=== PATIENT | male | born 1960 | race Caucasian/White ===

== ENCOUNTER 2019-12-25 08:13 | Inpatient (IN) | payer BC ==
[2019-12-25] VITALS (16 sets, daily range): BP systolic 98–125; BP diastolic 63–94
[~2019-12-25] VITALS: Ht 177.8 cm; Wt 116.9 kg
[2019-12-25] MEDS ORDERED: PLAVIX 75 MG TA75 MG PO (08:23)
[2019-12-25] MEDS ORDERED: ASPIR 8181 M1 PO (08:23)
[2019-12-25] MEDS ORDERED: NITROGLYCERIN0.4 MG SUBLING (08:23)
[2019-12-25] MEDS ORDERED: VENLAFAXINE HCL25 MG PO (08:24)
[2019-12-25] MEDS ORDERED: LORATIDINE 10 M10 M1 PO (08:24)
[2019-12-25] MEDS ORDERED: LIPITOR 20 MG T20 M1 PO (08:24)
[2019-12-25] MEDS ORDERED: TOPROL XL100 MG PO (08:25)
[2019-12-25] MEDS ORDERED: JANUVIA25 MG PO (08:25)
[2019-12-25 08:39] LABS: ABSOLUTE BASOPHILS 0.1 thou/uL (0.0-0.2); ABSOLUTE EOSINOPHILS 0.2 thou/uL (0.0-0.7); ABSOLUTE LYMPHOCYTES 2.6 thou/uL (0.8-5.3); ABSOLUTE MONOCYTES 0.8 thou/uL (0.0-1.2); ABSOLUTE NEUTROPHILS 5.5 thou/uL (1.6-8.1); BASOPHILS 1.3 %; EOSINOPHILS 2.1 %; HEMOGLOBIN 16.4 gm/dL (14.0-18.0); LYMPHOCYTES 28.4 %; MCH 31.2 pg (26.0-34.0); MCHC 34.9 g/dL (28.0-37.0); MCV 89.2 fL (80.0-100.0); MONOCYTES 8.3 %; MPV 7.2 fl. (7.2-11.1); NUCLEATED RBCS 0 /100WBC; PLATELET COUNT* 265 thou/uL (150-400); POLYS 59.9 %; RBC 5.28 mil/uL (4.50-6.00); RDW-CV 13.6 % (10.5-14.5); WBC 9.2 thou/uL (4.0-11.0)
[2019-12-25 08:48] LABS: CALCIUM 9.5 mg/dL (8.5-10.1); CREATININE 1.2 mg/dL (0.6-1.3); POTASSIUM 3.9 mmol/L (3.5-5.1)
[2019-12-25 08:59] LABS: ALBUMIN 3.7 g/dL (3.4-5.0); MAGNESIUM 1.8 mg/dL (1.8-2.4); TOTAL BILIRUBIN 0.4 mg/dL (<0.1-1.0); TOTAL PROTEIN 7.9 g/dL (6.4-8.2)
[2019-12-25] MEDS ORDERED: SUPER THERAVIT1 EACH PO (09:20)
[2019-12-25] MEDS ORDERED: PRINIVIL5 MG PO (09:20)
[2019-12-25] MEDS ORDERED: TRULICITY1.5 MG/0.5 (09:21)
[2019-12-25] MEDS ORDERED: FARXIGA5 MG PO (09:21)
--- NOTE | 2019-12-25 10:16 | EKG ---
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
[2019-12-25 11:46] LABS: CHOLESTEROL 163 mg/dL (<200); HDL CHOLESTEROL 39 mg/dL (>40); LDL CHOLESTEROL 96 mg/dL (<100); TC:HDL 4.2 Ratio (Not establshd); TRIGLYCERIDE 141 mg/dL (<150); VLDL 28 mg/dL (<40)
[2019-12-25 11:50] LABS: SERUM ASSESSMENT Clear
--- NOTE | 2019-12-25 17:24 | CARD ---
[address] [address] CARDIAC CATH REPORT Name: ANA MARIA MITCHELL Room: [address] IN ..#: [id number] Admission: 12/25/19 Attend Phys: Shonda Roy MD Discharge: Date of : 58 Report #: [id number] THIS REPORT FOR: //name// cc: Sid Velarde MD Honeycutt, Jamie Sue, MD ~ APPROVED REPORT Study performed: 12/25/2019 12:00:54 Patient Details Patient Status: In-Patient Room #: The patient is a 59 year-old male Event Personnel Mila Arredondo RN Wood Grinder Operator, Matt Sotelo RN Wood Grinder Operator, Jimenez Malone PRODUCTION WELDER Monitor, Isidro Linda Technician Biological Health, Michelle Miller RTManoj Scrub Procedures Performed Left Heart Cath w/or w/o Coronaries [id number] [facility] Indication Chest pain Risk Factors Hypercholesterolemia, Coronary Artery DiseaseHypertension Previous Procedures/Diagnoses Previous PCI Admission/Lab Medications/Medications given during procedure Heparin Unfract. Procedure Narrative The patient was brought electively to the Cardiac Catheterization Laboratory and was prepped and draped in a sterile manner. The right wrist was infiltrated with 1% Lidocaine subcutaneous anesthesia. A 6 mohawk sheath was inserted into the right radial artery. Coronary angiography was performed using coronary diagnostic catheters. The right coronary system was accessed and visualized with a JR4 catheter. The left coronary system was accessed and visualized with a JLr catheter. The left ventricle was accessed and visualized with a PIG catheter. Left ventricular/Aortic Valve gradient assessed via catheter pullback. Closure device was deployed with a 6 Fr TR Band. The patient tolerated the procedure well and there were no [facility] [address] [place] [address] CARDIAC CATH REPORT Name: ANA MARIA MITCHELL Room: [address] IN [facility]#: [id number] Admission: 12/25/19 Attend Phys: Shonda Roy MD Discharge: Date of : 58 Report #: [id number] complications associated with the procedure. There was no hematoma. Intraoperative Conscious Sedation Sedation start time: 1233 Case end Time: 1252 Fentanyl 25 mcg Dose: 103 2103 mGy Contrast Type and Amount: Visipaque 90 ml Coronary Angiography The patient's coronary anatomy is right dominant. Diagnostic Cath Left Main 0% stenosis LAD proximal stent had 0% restenosis. Mid stent had 30% restenosis Circumflex 0% stenosis Right Coronary mid stent had 30% restenosis. Distal rca had 30% stenosis Ramus 0% stenosis Left Ventriculography The left ventricular ejection fraction is estimated to be 60-65%. Left ventricular wall motion abnormalities are not present. There is no mitral insufficiency. Hemodynamics The aortic pressure is 93/66 mmHg with a mean of 77 mmHg. The left ventricular pressure is 109/10 mmHg with a mean of mmHg. The left ventricular end diastolic pressure is 12 mmHg. There was no gradient across the aortic valve upon pullback. Pullback from the left ventricle to the aorta revealed no gradient across the aortic valve. Conclusion 1. no significant restenosis in stents placed in the proximal and mid lad 2. no significant restenosis of a stent in the mid rca 3. LVEF 60-64% 4. suspect [place] [address] CARDIAC CATH REPORT Name: ANA MARIA MITCHELL Room: [address] IN [facility].#: [id number] Admission: 12/25/19 Attend Phys: Shonda Roy MD Discharge: Date of : 58 Report #: [id number] Recommendations Aggressive Medical Therapy <ELECTRONICALLY SIGNED> By: Isidro Linda MD, FACC 12/25/19 1723 1723 1723Dfrancisco Linda MD, FACC /INF
--- NOTE | 2019-12-25 20:08 | NUR ---
RECEIVED REPORT FROM JUAN DIEGO Bacon IN ER. PT ARRIVED TO TELE FLOOR AROUND 1040, ASSUMED CARE. PT ORIENTED TO ROOM BED AND CALL LIGHT. ADMISSION ASSESSMENT, VITALS, EDUCATION AND HISTORY COMPLETED CHARTED. IV INTACT. MEDS PER EMAR. PT WENT FOR CARDIAC CATH AND CAME BACK, NO INTERVENTION. RIGHT RADIAL SITE INTACT, NO HEMATOMA, VASCBAND IN PLACE AND MANAGED PER PROTOCOL. PT CALLED HIS AND GAVE HER AN UPDATE. PT RECEIVED PO PAIN MEDICATION FOR HEADACHE WITH PARTIAL RELIEF. VOIDING PER URINAL. PT CURRENTLY RESTING IN BED. CALL LIGHT IS Five ApesIN REACH. HOURLY ROUNDING PERFORMED. LOW FALL RISK PRECAUTIONS IN PLACE.
[2019-12-26 00:01] VITALS: BP 113/63
[2019-12-26 04:51] LABS: HEMATOCRIT 42.9 % (42.0-52.0); HEMOGLOBIN 14.8 gm/dL (14.0-18.0); MCHC 34.6 g/dL (28.0-37.0); MCV 89.6 fL (80.0-100.0); MPV 7.2 fl. (7.2-11.1); RBC 4.78 mil/uL (4.50-6.00); RDW-CV 13.7 % (10.5-14.5); WBC 6.5 thou/uL (4.0-11.0)
[2019-12-26 04:53] VITALS: BP 114/70
[2019-12-26 05:27] LABS: ALBUMIN 3.1 g/dL (3.4-5.0); CREATININE 1.2 mg/dL (0.6-1.3); MAGNESIUM 1.8 mg/dL (1.8-2.4); POTASSIUM 3.8 mmol/L (3.5-5.1); TOTAL BILIRUBIN 0.5 mg/dL (<0.1-1.0); TOTAL PROTEIN 6.7 g/dL (6.4-8.2)
[2019-12-26 08:13] VITALS: BP 92/65
[2019-12-26] MEDS ORDERED: GLUCOPHAGE XR750 M1 PO (10:31)
--- NOTE | 2019-12-26 11:05 | EKG ---
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 : 1960 Requested By: Isidro Linda Order Number: [id number] Virgie MD: Tom Cosby Measurements Intervals [place] Rate: 82 P: -5 CA: 190 QRS: 23 QRSD: 80 T: 43 QT: 368 QTc: 430 Interpretive Statements Sinus rhythm Low voltage, extremity and precordial leads Borderline ST elevation, lateral leads Compared to ECG 12/25/2019 08:16:20 Myocardial infarct finding now present ST (T wave) deviation now present Electronically Signed On 12-26-2019 11:04:12 CDT by Tom Cosby [email or web address] <ELECTRONICALLY SIGNED> By: Tom Cosby MD, FAC 12/26/19 1104 0548 0548 Tom Cosby MD, FAC /EPI
[2019-12-26 11:38] VITALS: BP 92/65
--- NOTE | 2019-12-26 12:43 | NUR ---
ASSUMED CARE OF PT AROUND 0730 THIS AM.REFER TO ASSESSMENT. PT HAS NO C/O PAIN THIS SHIFT. TOLERATING DIET WITHOUT COMPLAINTS N/V. PT COMPLETED ECHO AND CT ABDOMEN THIS SHIFT. OK TO DC HOME. CARDIOLOGISTS OK WITH DISCHARGE. PT GIVEN DISCHARGE INSTRUCTIONS AND VERBALIZES UNDERSTANDING. AWAITING DAUGHTER FOR TRANSPORTATION HOME. NO OTHER CONCERNS AT THIS TIME. CLWR. WCTM.
--- NOTE | 2019-12-26 14:32 | CON ---
[address] [address] CONSULTATION Name: ANA MARIA MITCHELL Room: [address]#: [id number] Admission: 12/25/19 Attend Phys: Shonda Roy MD Discharge: 12/26/19 Date of : 58 Report #: [id number] THIS REPORT FOR: //name// cc: Sid Velarde MD Honeycutt, Jamie Sue, MD ~ THIS REPORT FOR: //name// CC: Sid Roy DATE OF SERVICE: 12/25/2019 CARDIOLOGY CONSULTATION HISTORY OF PRESENT ILLNESS: The patient is a 59-year-old white male who I was asked to see in the hospital today after he complaining of chest pain. Unfortunately, no old records available. There are no family members available. The patient states in 05/2018 he was having chest heaviness. He went to [facility] and was admitted. He was seen by Dr. Ngo, piping engineer, there. He underwent femoral cardiac catheterization via the femoral approach. He had 2 coronary stents placed. A day later, he was taken back to the slab miller operator and Dr. Ngo placed 2 additional stents. He has done well since that time. He stays fairly active. He has had no stress test since that time. He was doing well until this morning. He was at work when he felt a heaviness in his chest, went into his back, he felt diaphoretic, hard to breathe. He did belch. Took a nitroglycerin that seemed to help. However, the heaviness returned. He took another nitroglycerin and finally called the ambulance. He was brought here to the [facility] and admitted for further evaluation and treatment. He denies any recent fever, cough, blood in the stool. Denies any noncompliance. He has had no trauma to his chest. Denied the pain being related to food. He denies exertional dyspnea. He did notice heart racing this morning, but has had no recent syncope. He did feel somewhat lightheaded. PAST MEDICAL HISTORY: He has had cholecystectomy, knee surgery, hypertension, diabetes, hyperlipidemia. CURRENT MEDICATIONS: Consist of the following: He is on clopidogrel, aspirin, Lipitor, Januvia, metoprolol, lisinopril, Trulicity, Farxiga. ALLERGIES: He has no known drug allergies. FAMILY HISTORY: His father of heart disease. SOCIAL HISTORY: He is . He and his live in [place], [place]. He works at [employer]. He quit smoking years ago, [place] [address] CONSULTATION Name: ANA MARIA MITCHELL Room: [address]#: [id number] Admission: 12/25/19 Attend Phys: Shonda Roy MD Discharge: 12/26/19 Date of : 58 Report #: [id number] REVIEW OF SYSTEMS: He has had no history of stroke. He does have sleep apnea, uses CPAP. No history of asthma, liver disease, kidney disease, cancer, psychiatric illness, chronic skin condition. PHYSICAL EXAMINATION: GENERAL: Revealed an elderly male, appeared in no distress. VITAL SIGNS: He had a blood pressure of 120/80, pulse is 80. He is afebrile. HEENT: He was anicteric. Conjunctivae pink. Mucous membranes are moist. NECK: Veins nondistended. No carotid bruits. CHEST: Clear to auscultation. CARDIAC: Regular rate and rhythm. ABDOMEN: Obese. EXTREMITIES: He has had no edema. Posterior pulse 2+ bilaterally. SKIN: Cool and dry. NEUROLOGIC: Nonfocal. LYMPH: No adenopathy. MUSCULOSKELETAL: No joint effusion. RADIOLOGICAL DATA: His ECG showed a sinus rhythm with no significant ST or T-wave change. Chest x-ray showed normal heart size, clear lung holloway. LABORATORY DATA: Sodium 138, potassium 3.9, BUN 15, creatinine 1.2, glucose 171. Liver function studies were normal. Troponin 0.06. BNP 36. Hemoglobin 16.4. IMPRESSION AND RECOMMENDATIONS: 1. Unstable angina. Recommend repeat cardiac catheterization. 2. Coronary artery disease. The patient is on aspirin and Plavix. 3. Hypertension. The patient is on a beta hali and RUTH inhibitor. 4. Hyperlipidemia. The patient is on a statin drug. 5. Diabetes. The patient is on oral medications. 6. Sleep apnea. The patient uses CPAP. <ELECTRONICALLY SIGNED> By: Isidro Linda MD, [facility] 12/26/19 1432 1136 1222Davijamir Linda MD, FAC /nt
== END 2019-12-26 14:15 | disposition home or self-care (01) | DRG 286 ==
LOC: M.ERS 08:13 → M.TBA-ER 09:22 → M.2W 09:22
PROVIDERS: Emergency Medicine Emergency Medical Services; ADMIT Internal Medicine
PROC: B211YZZ Fluoroscopy of Multiple Coronary Arteries using Other Contrast (ICD-10-PCS; principal; 2019-12-25)
PROC: B215YZZ Fluoroscopy of Left Heart using Other Contrast (ICD-10-PCS; principal; 2019-12-25)
PROC: 4A023N7 Measurement of Cardiac Sampling and Pressure, Left Heart, Percutaneous Approach (ICD-10-PCS; principal; 2019-12-25)
DX: I25.110 Atherosclerotic heart disease of native coronary artery with unstable angina pectoris (principal); K85.90 Acute pancreatitis without necrosis or infection, unspecified; E11.9 Type 2 diabetes mellitus without complications; E66.01 Morbid (severe) obesity due to excess calories; I10 Essential (primary) hypertension; E78.5 Hyperlipidemia, unspecified; G47.30 Sleep apnea, unspecified; Z79.82 Long term (current) use of aspirin; Z90.49 Acquired absence of other specified parts of digestive tract; Z68.37 Body mass index [BMI] 37.0-37.9, adult; Z79.899 Other long term (current) drug therapy